=== PATIENT | male | born 1950 | race Caucasian/White ===

== ENCOUNTER → 2016-04-20 | Outpatient (CLI) | payer OTHER, MEDICARE | LOC: BHCLAF 14:45 | PROVIDERS: ATTEND Internal Medicine Cardiovascular Disease | DX: I70.90 Unspecified atherosclerosis (principal) | CPT/HCPCS: 76775-PO ==

== ENCOUNTER → 2016-04-23 | Outpatient (CLI) | payer OTHER, MEDICARE | LOC: BHCLAF 14:45 | PROVIDERS: ATTEND Internal Medicine Cardiovascular Disease | DX: R06.00 Dyspnea, unspecified (principal); R07.9 Chest pain, unspecified | CPT/HCPCS: 93306-PO ==

== ENCOUNTER → 2016-05-10 | Outpatient (CLI) | payer OTHER, MEDICARE | LOC: BHLMT 16:00 | PROVIDERS: ATTEND Internal Medicine Cardiovascular Disease | DX: R07.9 Chest pain, unspecified (principal); R06.02 Shortness of breath; I25.10 Atherosclerotic heart disease of native coronary artery without angina pectoris | CPT/HCPCS: 93017-PO ==